=== PATIENT | female | born 1995 | race Caucasian/White ===

== ENCOUNTER 2020-05-16 10:16 | Day surgery (SDC) | payer OTHER ==
[2020-05-09 14:01] VITALS: BMI 26.6
[2020-05-16] MEDS ORDERED: BUPIVACAINE HCL/PF 0.25% (2.5MG/ML) 10 ML VIAL ONE (11:03)
[2020-05-16] MEDS ORDERED: LIDOCAINE 1%/EPI 1:100000 (20 ML MULTI DOSE VIAL) ONE (11:03)
[2020-05-16] MEDS ORDERED: MIDAZOLAM HCL 2 MG/2 ML SINGLE DOSE VIAL ONE (11:24)
[2020-05-16] MEDS ORDERED: oxyCODONE HCL 5 MG TABLET PO PRN (11:26)
[2020-05-16] MEDS ORDERED: ONDANSETRON 4 MG/2 ML VIAL IVPUSH PRN (11:26)
[2020-05-16] MEDS ORDERED: PROMETHAZINE HCL 25 MG/1 ML VIAL IVPUSH PRN (11:26)
[2020-05-16] MEDS ORDERED: BACITRACIN 15 GM TUBE TOPICAL OINTMENT ONE (11:26)
[2020-05-16] MEDS ORDERED: LACTATED RINGERS SOLUTION 1,000 ML IV SCH (11:30)
[2020-05-16] MEDS ORDERED: HYDROmorphone HCL/PF 1 MG/ML VIAL ONE ×2 (13:04→13:48)
[2020-05-16] MEDS ORDERED: DEXAMETHASONE SOD PHOSPHATE 4 MG/1 ML VIAL ONE (13:15)
[2020-05-16] MEDS ORDERED: ONDANSETRON 4 MG/2 ML VIAL ONE (13:15)
[2020-05-16] MEDS ORDERED: ROCURONIUM BROMIDE 50 MG/5 ML VIAL ONE (13:16)
[2020-05-16] MEDS ORDERED: PROPOFOL 20 ML ONE ×2 (13:16→14:56)
[2020-05-16] MEDS ORDERED: ceFAZolin SODIUM 1 GM VIAL ONE (13:16)
[2020-05-16] MEDS ORDERED: ACETAMINOPHEN 1000 MG/100 ML BAG IVPB ONE ×2 (15:31→15:32)
[2020-05-16 18:52] VITALS: TEMP 98.4
[2020-05-16] MEDS ORDERED: oxyCODONE HCL 5 MG TABLET ONE ×2 (19:02→19:47)
[2020-05-16] MEDS: oxyCODONE HCL 5 MG TABLET PO PRN ×2 (19:10→19:45)
[2020-05-16 21:29] VITALS: BP 133/71; PULSE 105
== END 2020-05-16 21:15 | disposition home or self-care (01) ==
LOC: FASU 10:16
PROVIDERS: ATTEND Surgery
PROC: 0UBM0ZZ Excision of Vulva, Open Approach (ICD-10-PCS; principal; 2020-05-16 13:23)
DX: Z41.1 Encounter for cosmetic surgery (principal)
CPT/HCPCS: 84703; 88300-TC; 94760; J0131